=== PATIENT | male | born 1955 | race Caucasian/White ===

== ENCOUNTER 2016-11-07 09:00 | Inpatient (IN) ==
[2016-11-13 15:18] LABS: Basophils # (Auto) 0.1 K/mcL (0.0-0.3); Basophils % (Auto) 0.7 % (0.0-2.0); Eosinophils # (Auto) 0.1 K/mcL (0.0-0.7); Eosinophils % (Auto) 1.4 % (0.0-7.0); Granulocytes % (Auto) 64.8 % (38.0-78.0); Lymphocytes # (Auto) 1.9 K/mcL (1.5-4.8); Lymphocytes % (Auto) 23.1 % (15.5-49.0); Mean Cell Volume 91.3 fL (80.0-100.0); Mean Corpuscular HGB Conc 33.7 g/dL (31.0-36.0); Mean Corpuscular Hemoglobin 30.8 pg (26.0-34.0); Monocytes # (Auto) 0.8 K/mcL (0.1-0.9); Platelet Count 234 K/mcL (140-440); RBC 5.03 M/mcL (4.50-5.90); Red Cell Distribution Width 13.9 % (11.5-14.5)
[2016-11-13 15:40] LABS: Blood Urea Nitrogen 20 mg/dl (6-20)
[2016-11-13 16:27] LABS: Appearance,Urine HAZY; Bacteria,Urine 0 /hpf (0); Bilirubin,Urine NEG (NEG); Color,Urine YELLOW; Glucose,Urine (UA) NEGATIVE (NEG); Ictotest,Urine NEG (NEG); Leukocyte Esterase,Urine 25 /uL (NEG); Mucus,Urine MANY /hpf (0); Nitrate,Urine NEG (NEG); Protein,Urine 30 mg/dL (NEG); Specific Gravity,Urine 1.029 (1.000-1.035); Sperm,Urine PRESENT /hpf (ABSENT); Urine Blood NEG mg/dL (<0.03); Urine Hyaline Cast 1 /lpf (0-2); Urine RBC 4 /hpf (0-1); Urine Squamous Epithelial Cell < 1 /hpf (0-4); Urine WBC 12 /hpf (0-4)
[2016-11-17] MEDS ORDERED: PREGABALIN 75 MG CAPSULE PO SCH (05:00)
[2016-11-17] MEDS ORDERED: CELECOXIB 200 MG CAPSULE PO SCH (05:00)
[2016-11-17] MEDS ORDERED: ACETAMINOPHEN 500 MG TABLET PO SCH (05:00)
[2016-11-17] MEDS ORDERED: oxyCODONE 20 MG TAB.ER.12H PO SCH (05:00)
[2016-11-17] MEDS ORDERED: ceFAZolin 1 GM VIAL IV SCH (05:00)
[2016-11-17 13:20] LABS: Appearance,Urine CLEAR; Bilirubin,Urine NEG (NEG); Color,Urine YELLOW; Glucose,Urine (UA) NEGATIVE (NEG); Leukocyte Esterase,Urine NEG /uL (NEG); Nitrate,Urine NEG (NEG); Protein,Urine NEG (NEG); Specific Gravity,Urine 1.021 (1.000-1.035); Urine Blood NEG mg/dL (<0.03); Urobilinogen,Urine NEG (NEG)
[2016-11-17] MEDS ORDERED: GLYCOPYRROLATE 0.2 MG/ML VIAL IV ONE (14:05)
[2016-11-17] MEDS ORDERED: TRANEXAMIC ACID 1,000 MG/10 ML VIAL IV ONE ×2 (14:05→15:20)
[2016-11-17] MEDS ORDERED: PHENYLEPHRINE 10 MG/ML VIAL IV ONE (14:05)
[2016-11-17] MEDS ORDERED: LIDOCAINE HCL/PF 100 MG/5 ML SYRINGE IV ONE (14:05)
[2016-11-17] MEDS ORDERED: PROPOFOL 200 MG/20 ML VIAL IV ONE (14:05)
[2016-11-17] MEDS ORDERED: ONDANSETRON 4 MG/2 ML VIAL IV ONE (14:05)
[2016-11-17] MEDS ORDERED: MIDAZOLAM 5 MG/5 ML VIAL IV ONE (14:05)
[2016-11-17] MEDS ORDERED: KETAMINE 100 MG/ML ML IV ONE (14:05)
[2016-11-17] MEDS ORDERED: GENTAMICIN SULFATE 800 MG/20 ML VIAL IR ONE (14:33)
[2016-11-17] MEDS ORDERED: IPRATROPIUM/ALBUTEROL 3 ML AMPUL.NEB NEB PRN (14:43)
[2016-11-17] MEDS ORDERED: METHOCARBAMOL 1,000 MG/10 ML VIAL IV PRN (14:43)
[2016-11-17] MEDS ORDERED: PROMETHAZINE 25 MG/ML VIAL IV PRN (14:43)
[2016-11-17] MEDS ORDERED: ePHEDrine 50 MG/ML AMPUL IV PRN (14:43)
[2016-11-17] MEDS ORDERED: BENZOCAINE/MENTHOL 1 LOZENGE PO PRN ×2 (14:43→15:20)
[2016-11-17] MEDS ORDERED: MEPERIDINE 25 MG/ML SYRINGE IV PRN (14:43)
[2016-11-17] MEDS ORDERED: fentaNYL 100 MCG/2 ML VIAL IV PRN (14:43)
[2016-11-17] MEDS ORDERED: LACTATED RINGERS 1,000 ML IV SCH (14:45)
[2016-11-17] MEDS ORDERED: POLYETHYLENE GLYCOL 3350 17 GM PACKET PO PRN (15:20)
[2016-11-17] MEDS ORDERED: ONDANSETRON 4 MG/2 ML VIAL IV PRN (15:20)
[2016-11-17] MEDS ORDERED: HYDROcodone/APAP 10/325MG TABLET PO PRN (15:20)
[2016-11-17] MEDS ORDERED: FLEETS ADULT ENEMA PR PRN (15:20)
[2016-11-17] MEDS ORDERED: BISACODYL 10 MG SUPP.RECT PR PRN (15:20)
[2016-11-17] MEDS ORDERED: MAGNESIUM HYDROXIDE 30 ML ORAL.SUSP PO PRN (15:20)
[2016-11-17] MEDS ORDERED: ACETAMINOPHEN 325 MG TABLET PO PRN (15:20)
--- NOTE | 2016-11-17 16:12 | XRay Report ---
CLINICAL INFORMATION: Right total hip arthroplasty TECHNIQUE: AP pelvis and crosstable lateral right hip COMPARISON: None. FINDINGS: Status post right total hip arthroplasty. Acetabular and femoral head complements are in anatomic positions. Mild degenerative disc disease at L5-S1. Pelvis is otherwise negative. Left hip is negative. IMPRESSION: Right total hip arthroplasty. Interpreted and Authenticated by: Scottie Cameron 11/17/16
[2016-11-17] MEDS: 0.45 % SODIUM CHLORIDE 1,000 ML IV SCH (16:22)
[2016-11-17] MEDS ORDERED: HETASTARCH 6% 30 GM/500 ML BAG IV ONE ×2 (16:41→16:50)
--- NOTE | 2016-11-17 16:47 | Brief Operative Note ---
Date of procedure: 11/17/16 Pre-op diagnosis: right hip djd Post-op diagnosis: same Procedure: right total hip cementless implant Grafts/Implants: Yes Anesthesia: GETA Surgeon: David Bucio Mixing Machine Tender Cork Rod: Huber Giron Estimated blood loss (cc): 20 Specimens Removed/Pathology: none sent Condition: stable Disposition: PACU
[2016-11-17] MEDS: HYDROmorphone 2 MG/ML SYRINGE IV PRN ×2 (19:39→20:16)
[2016-11-17] MEDS: oxyCODONE HCL 5 MG TABLET PO PRN (20:18)
[2016-11-17] MEDS: DOCUSATE SODIUM 100 MG CAPSULE PO SCH (20:19)
[2016-11-17] MEDS: SENNOSIDES 1 TABLET PO SCH (20:19)
[2016-11-17] MEDS: ASPIRIN 325 MG ENTERIC COATED TABLET PO SCH (20:19)
[2016-11-17] MEDS: ATORVASTATIN 20 MG TABLET PO SCH (20:19)
[2016-11-17] MEDS: 0.9 % SODIUM CHLORIDE 10 ML SYRINGE IV SCH (20:19)
[2016-11-17] MEDS: ceFAZolin 1 GM VIAL IV SCH (22:59)
[2016-11-17] MEDS: KETOROLAC 15 MG/ML VIAL IV PRN (22:59)
[2016-11-17] MEDS: TEMAZEPAM 15 MG CAPSULE PO PRN (23:23)
[2016-11-18] MEDS: oxyCODONE HCL 5 MG TABLET PO PRN ×8 (01:03→20:26)
[2016-11-18] MEDS: 0.45 % SODIUM CHLORIDE 1,000 ML IV SCH ×3 (01:42→20:28)
[2016-11-18] MEDS: 0.9 % SODIUM CHLORIDE 10 ML SYRINGE IV SCH ×3 (05:19→20:27)
[2016-11-18] MEDS: ceFAZolin 1 GM VIAL IV SCH (05:45)
[2016-11-18] MEDS: buPROPion 150 MG TAB.XL.24H PO SCH (08:53)
[2016-11-18] MEDS: DOCUSATE SODIUM 100 MG CAPSULE PO SCH ×2 (08:53→20:26)
[2016-11-18] MEDS: ASPIRIN 325 MG ENTERIC COATED TABLET PO SCH ×2 (08:54→20:26)
[2016-11-18] MEDS: LISINOPRIL 20 MG TABLET PO SCH (10:46)
[2016-11-18] MEDS: KETOROLAC 15 MG/ML VIAL IV PRN ×2 (13:20→23:29)
[2016-11-18] MEDS: SENNOSIDES 1 TABLET PO SCH (20:26)
[2016-11-18] MEDS: ATORVASTATIN 20 MG TABLET PO SCH (20:26)
[2016-11-18] MEDS: TEMAZEPAM 15 MG CAPSULE PO PRN (21:33)
[2016-11-19] MEDS: oxyCODONE HCL 5 MG TABLET PO PRN ×5 (00:55→20:58)
[2016-11-19] MEDS: 0.9 % SODIUM CHLORIDE 10 ML SYRINGE IV SCH ×3 (05:10→20:59)
--- NOTE | 2016-11-19 07:21 | Orthopedic Progress Note ---
Subjective Patient information: Note initiated : 11/19/16 at 7:20 am Service Date, if different from initiated Date: [] Patient: Curtis Llanos 60 y/o M admitted on 11/17/16 for Right Total Hip Arthroplasty. Chief Complaint: [pain is still 8 of 10 with le[address] still in place] Objective Vital signs: Vital Signs Temp Pulse Pulse Resp BP Pulse Ox 11/19/16 07:14 95 11/19/16 07:13 94 H 11/19/16 04:49 95 11/19/16 04:00 99.5 F H 92 H 20 122/84 95 11/18/16 22:54 99.5 F H 115 H 20 162/89 95 11/18/16 22:53 95 11/18/16 21:00 97 11/18/16 19:36 98.2 F 109 H 20 154/84 97 11/18/16 17:00 95 11/18/16 16:00 98.6 F 94 H 16 119/78 98 11/18/16 15:00 94 11/18/16 13:00 96 11/18/16 12:00 98.6 F 103 H 16 126/70 96 11/18/16 11:00 96 11/18/16 09:00 92 11/18/16 08:00 97.9 F 98 H 105 H 16 105/71 92 11/18/16 07:36 97 Intake and Output 11/18/16 11/19/16 11/19/16 21:59 05:59 13:59 Intake Total 240 / 240 200 / 200 Output Total 300 / 300 2074 Balance -60 / - -1874 Intake: Oral 240 / 240 200 / 200 Output: Urine Catheter Amount 300 / 300 2074 Other: Meal Dinner Percent of Meal Consumed 100% Weight 177 lb Intake & Output: Intake & Output 11/18/16 11/19/16 11/19/16 21:59 05:59 13:59 Intake Total 240 / 240 200 / 200 Output Total 300 / 300 2074 Balance -60 / - -1874 Weight 177 lb Intake: Oral 240 / 240 200 / 200 Output: Urine Catheter Amount 300 / 300 2074 Other: Meal Dinner Percent of Meal Consumed 100% Incision: Yes healing Incision clean and dry: Yes Dressing: Yes clean Weight bearing status: full Neurological exam IM: Yes oriented X3, Yes neurovascular intact Extremities exam IM: Yes Foot pink and warm, Yes neurovascular intact - Labs CBC & BMP: 11/18/16 05:24 11/13/16 13:16 Labs: Orthopedic Labs 11/13/16 13:16 PT 13.8 INR 1.0 APTT 30 11/18/16 11/13/16 05:24 13:16 Hgb 15.5 Hct 35.9 L 46.0
--- NOTE | 2016-11-19 07:24 | Discharge Summary ---
Ortho Discharge - [facility] - Patient Instructions Diet: Regular Diet Activity: activity as tolerated, weight bearing as tolerated Total Hip Protocol: Follow activity instructions as provided by Physical Therapy. Dressing Care: Marily Ag - leave on for 5 days - Follow Up Plan Follow Up Appointments: David Bucio MD [Physician] - 11/20/16 2:20 pm Disposition: Xfer SNF Prognosis: Good Rehab Potential: Good I certify that the patient requires SNF services: Yes Overall status at discharge: patient is progressing back to baseline - Orders For Discharge Prescriptions: oxyCODONE HCL [Roxicodone] 30 mg PO QIDP PRN #60 tablet PRN Reason: Pain oxyCODONE HCL [Roxicodone] 5 - 10 mg PO Q4-6HP PRN #60 tablet PRN Reason: Pain Additional Discharge Orders: OT Discharge Order Location: Determined By Patient Physical Therapy at Discharge - [facility] Location: Determined By Patient CPM Discharge Order Location: Determined By Patient Walker Location: Determined By Patient
[2016-11-19] MEDS ORDERED: TAMSULOSIN 0.4 MG CAPSULE PO ONE (07:33)
[2016-11-19] MEDS: ASPIRIN 325 MG ENTERIC COATED TABLET PO SCH ×2 (08:15→20:58)
[2016-11-19] MEDS: oxyCODONE 10 MG TAB.ER.12H PO SCH ×2 (08:15→20:59)
[2016-11-19] MEDS: buPROPion 150 MG TAB.XL.24H PO SCH (08:15)
[2016-11-19] MEDS: LISINOPRIL 20 MG TABLET PO SCH (08:15)
[2016-11-19] MEDS: DOCUSATE SODIUM 100 MG CAPSULE PO SCH ×2 (08:15→20:58)
[2016-11-19] MEDS: SENNOSIDES 1 TABLET PO SCH (20:58)
[2016-11-19] MEDS: ATORVASTATIN 20 MG TABLET PO SCH (20:58)
[2016-11-19] MEDS ORDERED: TAMSULOSIN 0.4 MG CAPSULE PO SCH (21:00)
[2016-11-20] MEDS: oxyCODONE 10 MG TAB.ER.12H PO SCH ×2 (00:21→09:32)
[2016-11-20] MEDS: oxyCODONE HCL 5 MG TABLET PO PRN ×3 (04:11→12:33)
[2016-11-20] MEDS: 0.9 % SODIUM CHLORIDE 10 ML SYRINGE IV SCH (05:37)
--- NOTE | 2016-11-20 09:02 | Orthopedic Progress Note ---
Subjective Patient information: Note initiated : 11/20/16 at 9:01 am Service Date, if different from initiated Date: [] Patient: Curtis Llanos 60 y/o M admitted on 11/17/16 for Right Total Hip Arthroplasty. Chief Complaint: [minimal pain ambulating well] Objective Vital signs: Vital Signs Temp Pulse Resp BP Pulse Ox 11/20/16 08:23 20 96 11/20/16 08:12 98.1 F 20 118/79 96 11/20/16 08:03 96 11/20/16 08:02 96 H 11/20/16 03:21 97.4 F 100 H 20 102/73 95 11/20/16 00:00 99.0 F H 97 H 20 115/79 97 11/19/16 23:00 97 11/19/16 21:00 96 11/19/16 20:00 99.2 F H 107 H 20 127/86 96 11/19/16 19:00 96 11/19/16 16:00 98.9 F 20 123/79 96 11/19/16 15:00 96 11/19/16 13:00 96 11/19/16 12:00 99.1 F H 20 111/73 96 11/19/16 11:00 96 Intake and Output 11/19/16 11/20/16 11/20/16 21:59 05:59 13:59 Intake Total 400 / 400 440 / 440 Output Total 900 / 900 1875 / 1875 Balance -500 / -500 -1435 / -1435 Intake: Oral 400 / 400 440 / 440 Output: Urine Catheter Amount 900 / 900 1874 Other: Meal Breakfast Percent of Meal Consumed 100% Weight 176 lb 8 oz Intake & Output: Intake & Output 11/19/16 11/20/16 11/20/16 21:59 05:59 13:59 Intake Total 400 / 400 440 / 440 Output Total 900 / 900 187 / 187 Balance -500 / -500 -1435 / -1435 Weight 176 lb 8 oz Intake: Oral 400 / 400 440 / 440 Output: Urine Catheter Amount 900 / 900 1874 Other: Meal Breakfast Percent of Meal Consumed 100% Incision: Yes healing Incision clean and dry: Yes Dressing: Yes clean Weight bearing status: full Neurological exam IM: Yes oriented X3, Yes neurovascular intact Extremities exam IM: Yes Foot pink and warm, Yes neurovascular intact - Labs CBC & BMP: 11/18/16 05:24 11/13/16 13:16 Labs: Orthopedic Labs 11/13/16 13:16 PT 13.8 INR 1.0 APTT 30 11/18/16 11/13/16 05:24 13:16 Hgb 15.5 Hct 35.9 L 46.0
[2016-11-20] MEDS: ASPIRIN 325 MG ENTERIC COATED TABLET PO SCH (09:32)
[2016-11-20] MEDS: LISINOPRIL 20 MG TABLET PO SCH (09:32)
[2016-11-20] MEDS: buPROPion 150 MG TAB.XL.24H PO SCH (09:32)
[2016-11-20] MEDS: DOCUSATE SODIUM 100 MG CAPSULE PO SCH (09:32)
== END 2016-11-20 12:40 | DRG 470 ==
LOC: MEDSUR 11-17 11:39
PROVIDERS: ADMIT Orthopaedic Surgery; ATTEND Orthopaedic Surgery